=== PATIENT | male | born 1955 | race Caucasian/White ===

== ENCOUNTER 2016-12-13 09:54 | Emergency (ER) | payer MEDICAID ==
[~2016-12-13] VITALS: Wt 89.0 kg
--- NOTE | 2016-12-13 10:52 | ERD ---
ER Documentation Chief Complaint Date/Time DATE: 12/13/16 TIME: 10:30 Chief Complaint painful rash to right side of body with no fevers. HPI 61-year-old male with history of diabetes mellitus type 2 ambulatory to the ED complaining of a 2 day history of painful, red rash to his right side of his chest. Otherwise denies chest pain or palpitation. No shortness of breath or cough. No abdominal pain, nausea vomiting. No headache, neck or back pain. No fevers or chills. ROS All systems reviewed and are negative except as per history of present illness. Medications Home Meds Active Scripts Hydrocodone/Acetaminophen ([place] 5-325 Tablet) 1 Each Tablet, 1-2 TAB PO Q6H Y for PAIN, #12 TAB Prov:MARTHA CARO MD 12/13/16 Tramadol HCl (Tramadol HCl) 50 Mg Tablet, 50 MG PO Q6, #20 TAB Prov:MARTHA CARO MD 12/13/16 Valacyclovir HCl (Valtrex) 1,000 Mg Tablet, 1000 MG PO TID for 7 Days, TAB Prov:MARTHA CRAO MD 12/13/16 Reported Medications Metformin* (Glucophage*) 1,000 Mg Tablet, 1000 MG PO BID, #60 TAB 12/13/16 Glipizide* (Glipizide*) 10 Mg Tablet, 10 MG PO BID, TAB 12/13/16 Allergies Allergies: Coded Allergies: No Known Allergy (Unverified , 12/13/16) PMhx/Soc Reviewed in chart. As per HPI. History of Surgery: Yes (appendectomy) Anesthesia Reaction: No Hx Neurological Disorder: No Hx Respiratory Disorders: No Hx Cardiac Disorders: No Hx Psychiatric Problems: No Hx Miscellaneous Medical Probl: Yes (DM) Hx Alcohol Use: No Hx Substance Use: No Hx Tobacco Use: No Smoking Status: Never smoker FmHx Not relevant to presenting complaint. Physical Exam Vitals Vital Signs Date Time Temp Pulse Resp B/P Pulse Ox O2 Delivery O2 Flow Rate FiO2 12/13/16 10:04 98.8 80 20 148/85 98 Physical Exam Const: Alert, no acute distress. Head: Atraumatic Eyes: Normal Conjunctiva ENT: Normal External Ears, Nose and Mouth. Neck: Full range of motion. Nontender Resp: Clear to auscultation bilaterally Cardio: Regular rate and rhythm, no murmurs Abd: Soft, non tender, non distended. Normal bowel sounds Skin: Vesicles on erythematous base in the right T5 dermatome. Back: No midline or flank tenderness Ext: No cyanosis, or edema Neur: Awake and alert Psych: Normal Mood and Affect Procedures/MDM DOCUMENTS REVIEWED: ED nurse, no prior records available.. [employer] DECISION MAKIN-year-old male with history of diabetes mellitus type 2 ambulatory to the ED complaining of a 2 day history of painful, red rash to his right side of his chest. Presentation consistent with herpes zoster infection of the right T5 dermatome. No evidence of ophthalmologic, respiratory or neurologic involvement. No evidence of cellulitis or secondary infection. Stable for discharge with antivirals, appropriate analgesics and outpatient follow-up as counseled. Counseled patient regarding diagnostic workup, diagnosis and need for followup. Understands to return to ED if symptoms recur, worsen or any other concerns. Departure Diagnosis: Primary Impression: Herpes zoster Herpes zoster complications: without complications Qualified Code: B02.9 - Herpes zoster without complication Additional Impression: Diabetes mellitus type 2 in nonobese Condition: Stable Patient Instructions: Shingles (Herpes Zoster) MARTHA CARO MD Dec 13, 2016 10:52
[2016-12-13] MEDS ORDERED: HYDR-906 PO (10:55)
[2016-12-13] MEDS ORDERED: TRAM50TA2 PO (10:55)
[2016-12-13] MEDS ORDERED: VALA10004 PO (10:55)
[2016-12-13] MEDS ORDERED: GLIP-95 PO (11:26)
[2016-12-13] MEDS ORDERED: MTF1000T PO (11:26)
== END 2016-12-13 11:16 | disposition home or self-care (01) ==
LOC: E/R 09:54
DX: B02.9 Zoster without complications (principal); E11.9 Type 2 diabetes mellitus without complications; Z79.84 Long term (current) use of oral hypoglycemic drugs
CPT/HCPCS: 99284

== ENCOUNTER 2016-12-29 13:40 | Emergency (ER) | payer MEDICAID ==
[~2016-12-29] VITALS: Wt 88.0 kg
[~2016-12-29 13:40] MED LIST: GLIP-95 PO; HYDR-906 PO; MTF1000T PO; TRAM50TA2 PO; VALA10004 PO
[2016-12-29] MEDS ORDERED: ONDANSETRON 4 MG INJ IV STA (15:36)
[2016-12-29] MEDS ORDERED: KETOROLAC 15 MG INJ IV STA (15:36)
--- NOTE | 2016-12-29 15:40 | ERD ---
ER Documentation Chief Complaint Date/Time DATE: 12/29/16 TIME: 15:39 Chief Complaint r side abdominal pain since last night. no n/v. mild diarrhea no dysuria HPI 61-year-old male, diabetes mellitus type 2, diagnosed herpes shingles in the right T5 distribution on 12/13/16 ambulatory to ED complaining of right upper quadrant pain. The neuralgia from his shingles improved with analgesics but once he ran out of his pain medicine the pain returned and he complains of ongoing, sharp, nonradiating pain in the distribution of the shingles rash. There are no new lesions or drainage. Yesterday he developed unprovoked, sharp , nonradiating, moderate right upper quadrant pain with nausea no vomiting and several episodes of nonbloody, nonmucoid diarrhea. Denies ill contacts, recent travel as well food exposure. No dysuria, polyuria, hematuria or flank pain. No relieving or exacerbating factors. Denies chest pain or palpitations. No shortness of breath or cough. No URI symptoms. No fevers or chills. ROS All systems reviewed and are negative except as per history of present illness. Medications Home Meds Active Scripts Tramadol HCl (Tramadol HCl) 50 Mg Tablet, 50 MG PO Q8 Y for PAIN, #20 TAB Prov:MARTHA CARO MD 12/29/16 Capsaicin (Capsaicin) 42.5 Gm Cream.gm., 1 APPLIC TOP TID, #1 TUB Prov:MARTHA CARO MD 12/29/16 Reported Medications Metformin* (Glucophage*) 1,000 Mg Tablet, 1000 MG PO BID, #60 TAB 12/13/16 Glipizide* (Glipizide*) 10 Mg Tablet, 10 MG PO BID, TAB 12/13/16 Discontinued Scripts Hydrocodone/Acetaminophen ([place] 5-325 Tablet) 1 Each Tablet, 1-2 TAB PO Q6H Y for PAIN, #12 TAB Prov:MARTHA CARO MD 12/13/16 Tramadol HCl (Tramadol HCl) 50 Mg Tablet, 50 MG PO Q6, #20 TAB Prov:MARTHA CARO MD 12/13/16 Valacyclovir HCl (Valtrex) 1,000 Mg Tablet, 1000 MG PO TID for 7 Days, TAB Prov:MARTHA CARO MD 12/13/16 Allergies Allergies: Coded Allergies: No Known Allergy (Unverified , 12/29/16) PMhx/Soc Reviewed in chart. As per HPI. History of Surgery: Yes (appendectomy) Anesthesia Reaction: No Hx Neurological Disorder: No Hx Respiratory Disorders: No Hx Cardiac Disorders: No Hx Psychiatric Problems: No Hx Miscellaneous Medical Probl: Yes (DM) Hx Alcohol Use: No Hx Substance Use: No Hx Tobacco Use: No FmHx Reviewed in chart. As per HPI. Physical Exam Vitals Vital Signs Date Time Temp Pulse Resp B/P Pulse Ox O2 Delivery O2 Flow Rate FiO2 12/29/16 17:46 78 16 161/98 98 Room Air 12/29/16 13:49 98.5 76 20 122/68 98 Physical Exam Const: Alert, mild distress due to pain Head: Atraumatic Eyes: Normal Conjunctiva ENT: Normal External Ears, Nose and Mouth. Neck: Full range of motion. Nontender Resp: Clear to auscultation bilaterally Cardio: Regular rate and rhythm, no murmurs Abd: Soft, mild right upper quadrant tenderness but no rebound or guarding. No masses or abnormal pulsations. non distended. Normal bowel sounds Skin: No petechiae or rashes. Dried vesicles on erythematous base right T5 distribution more prominent anteriorly with minimal posterior lesions. Back: No midline or flank tenderness Ext: No cyanosis, or edema Neur: Awake and alert Psych: Normal Mood and Affect Result Diagram: 12/29/16 1630 12/29/16 1630 Results 24 hrs Laboratory Tests Test 12/29/16 16:20 12/29/16 16:30 Urine Bilirubin NEGATIVE Urine Clarity CLEAR Urine Color LT. YELLOW Urine Glucose 0.25%% Urine Hemoglobin NEGATIVE Urine Ketones NEGATIVE Urine Leukocyte Esterase NEGATIVE Urine Nitrite NEGATIVE Urine Specific [place] 1.015 Urine Total Protein NEGATIVE Urine Urobilinogen 0.2 E.U./dL Urine pH 6.0 Alanine Aminotransferase (ALT/SGPT) 17IU/L Albumin 4.1g/dl Albumin/Globulin Ratio 1.07 Alkaline Phosphatase 116IU/L Anion Gap 18 Aspartate Amino Transf (AST/SGOT) 18IU/L Basophils # 0.010^3/ul Basophils % 0.4% Blood Urea Nitrogen 15mg/dl Calcium Level 9.5mg/dl Carbon Dioxide Level 28mmol/L Chloride Level 99mmol/L Creatinine 0.74mg/dl Direct Bilirubin 0.00mg/dl Eosinophils # 0.210^3/ul Eosinophils % 2.6% Globulin 3.80g/dl Glucose Level 246mg/dl Hematocrit 43.2% Hemoglobin 15.6g/dl Indirect Bilirubin 0.4mg/dl Lipase 82U/L Lymphocytes # 2.710^3/ul Lymphocytes % 30.2% Mean Corpuscular Hemoglobin 29.8pg Mean Corpuscular Hemoglobin Concent 36.1g/dl Mean Corpuscular Volume 82.6fl Mean Platelet Volume 9.5fl Monocytes # 0.810^3/ul Monocytes % 8.7% Neutrophils # 5.210^3/ul Neutrophils % 57.9% Nucleated Red Blood Cells # 0.010^3/ul Nucleated Red Blood Cells % 0.0/100WBC Platelet Count 66693^3/UL Potassium Level 4.5mmol/L Red Blood Count 5.2310^6/ul Red Cell Distribution Width 12.3% Sodium Level 140mmol/L Total Bilirubin 0.4mg/dl Total Protein 7.9g/dl White Blood Count 9.010^3/ul Current Medications Medications (Trade) Dose Ordered Sig/Ellen Route PRN Reason Start Time Stop Time Status Last Admin Dose Admin Ondansetron HCl (Zofran Inj) 4 mg ONCE STAT IV 12/29/16 15:36 12/29/16 15:40 DC 12/29/16 16:36 Ketorolac Tromethamine (Toradol) 15 mg ONCE STAT IV 12/29/16 15:36 12/29/16 15:40 DC 12/29/16 15:36 IMAGING: PROCEDURE: Abdominal Ultrasound (right upper quadrant). CLINICAL INDICATION: Abdominal pain TECHNIQUE: Multiple real-time longitudinal and transverse images of the right upper quadrant of the abdomen were acquired utilizing a curved array transducer. Images were reviewed on a high-resolution PACS workstation. COMPARISON: None FINDINGS: The liver is normal in size and echogenicity. No focal masses are identified. There is no evidence of intra or extrahepatic ductal dilatation. The common bile duct measures 2.6 mm in diameter. No gallstones or gallbladder wall thickening is seen. The visualized portions of the pancreas are unremarkable with obscuration of the tail of the pancreas. No free fluid is identified. There is no evidence of right hydronephrosis or renal calcification. The right kidney measures 12.2 cm in length. The visualized portions of the aorta and inferior vena cava are within normal limits. IMPRESSION: 1. Unremarkable right upper quadrant ultrasound. RPTAT: KK .Claudio Fowler MD, MD Date Time Electronically viewed and signed by .Claudio Fowler MD, on 2016 16:19 .B/ Procedures/MDM DOCUMENTS REVIEWED: ED nurse, prior ED. ED COURSE: Toradol 15 mg IV. REEXAMINATION/REEVALUATION: Time: 17:35. Doing well. Pain decreased significantly. [employer] DECISION MAKIN-year-old male, diabetes mellitus type 2, diagnosed with herpes shingles in the right T5 distribution on 12/13/16 ambulatory to ED complaining of right upper quadrant pain. Liver function tests are normal. No pancreatitis. No anemia or evidence of GI bleeding. Ultrasound is negative for cholelithiasis or cholecystitis. No evidence of cholangitis. Occult malignancy is unlikely. Abdominal exam is benign without rebound, guarding or signs of peritonitis. Pain likely referred from shingles neuropathy although other etiologies including gastritis/GERD, peptic ulcer disease, bowel obstruction, ureterolithiasis, pyelonephritis and abdominal aortic aneurysm are considered. Diabetic hyperglycemia without evidence of DKA. Stable for discharge with precautionary instructions, appropriate analgesics and outpatient follow-up as counseled. Counseled patient regarding diagnostic workup, diagnosis and need for followup. Understands to return to ED if symptoms recur, worsen or any other concerns. Departure Diagnosis: Primary Impression: Acute abdominal pain in right upper quadrant Additional Impressions: Shingles rash Herpes zoster complications: without complications Qualified Code: B02.9 - Herpes zoster without complication Hyperglycemia due to type 2 diabetes mellitus Diabetes mellitus manager terminal insulin use: without shelter use Qualified Code : E11.65 - Type 2 diabetes mellitus with hyperglycemia, without long-term current use of insulin Condition: Stable MARTHA CARO MD Dec 29, 2016 15:40
--- NOTE | 2016-12-29 16:20 | RADRPT ---
PROCEDURE: Abdominal Ultrasound (right upper quadrant). CLINICAL INDICATION: Abdominal pain TECHNIQUE: Multiple real-time longitudinal and transverse images of the right upper quadrant of th e abdomen were acquired utilizing a curved array transducer. Images were reviewed on a high-resoluti on PACS workstation. COMPARISON: None FINDINGS: The liver is normal in size and echogenicity. No focal masses are identified. There is no evidenc e of intra or extrahepatic ductal dilatation. The common bile duct measures 2.6 mm in diameter. No gallstones or gallbladder wall thickening is seen. The visualized portions of the pancreas are unremarkable with obscuration of the tail of the pancrea s. No free fluid is identified. There is no evidence of right hydronephrosis or renal calcification. The right kidney measures 12.2 cm in length. The visualized portions of the aorta and inferior vena cava are within normal limits. IMPRESSION: 1. Unremarkable right upper quadrant ultrasound. RPTAT: KK .Claudio Fowler MD, MD Date Time Electronically viewed and signed by .Claudio Fowler MD, on 12/29/2016 16:19 .B/
[2016-12-29 16:54] LABS: ADD SCAN DIFF NO
[2016-12-29 16:57] LABS: ADD UMIC NO; URINE BILIRUBIN (Dip) NEGATIVE (NEGATIVE); URINE BLOOD (Dip) NEGATIVE (NEGATIVE); URINE COLOR LT. YELLOW (YELLOW); URINE KETONES (Dip) NEGATIVE (NEGATIVE); URINE LEUKOCYTE ESTERASE (Dip) NEGATIVE (NEGATIVE); URINE NITRITE (Dip) NEGATIVE (NEGATIVE); URINE TOTAL PROTEIN (Dip) NEGATIVE (NEGATIVE); URINE UROBILINOGEN (Dip) 0.2 E.U./dL (0.1-1.0)
[2016-12-29 16:59] LABS: BASOPHILS % 0.4 % (0.0-2.0); EOSINOPHILS # 0.2 10^3/ul (0.0-0.5); EOSINOPHILS % 2.6 % (0.0-7.0); HEMATOCRIT 43.2 % (42.0-52.0); HEMOGLOBIN 15.6 g/dl (14.0-18.0); LYMPHOCYTES # 2.7 10^3/ul (0.8-2.9); LYMPHOCYTES % 30.2 % (15.0-51.0); MEAN CORPUSCULAR HEMOGLOBIN 29.8 pg (29.0-33.0); MEAN CORPUSCULAR HGB CONC 36.1 g/dl (32.0-37.0); MEAN CORPUSCULAR VOLUME 82.6 fl (82.0-101.0); MEAN PLATELET VOLUME 9.5 fl (7.4-10.4); MONOCYTE # 0.8 10^3/ul (0.3-0.9); MONOCYTES % 8.7 % (0.0-11.0); NEUTROPHIL # 5.2 10^3/ul (1.6-7.5); NEUTROPHILS % 57.9 % (39.0-77.0); PLATELET COUNT 322 10^3/UL (140-415); RED BLOOD COUNT 5.23 10^6/ul (4.70-6.10); RED CELL DISTRIBUTION WIDTH 12.3 % (11.5-14.5)
[2016-12-29 17:10] LABS: ALBUMIN 4.1 g/dl (3.3-4.9); POTASSIUM 4.5 mmol/L (3.5-5.1)
[2016-12-29 17:12] LABS: ALBUMIN/GLOBULIN RATIO 1.07; BILIRUBIN,INDIRECT 0.4 mg/dl (0-1.1); BILIRUBIN,TOTAL 0.4 mg/dl (0.2-1.3); CREATININE 0.74 mg/dl (0.61-1.24); TOTAL PROTEIN 7.9 g/dl (6.1-8.1)
[2016-12-29 17:13] LABS: CALCIUM 9.5 mg/dl (8.4-10.2)
[2016-12-29] MEDS ORDERED: TRAM50TA2 PO (18:26)
[2016-12-29] MEDS ORDERED: CAPS42.510 TOP (18:26)
[2016-12-29 18:40] VITALS: BP 148/82; PULSE 76; RESP 16; TEMP 98.3
== END 2016-12-29 18:41 | disposition home or self-care (01) ==
LOC: E/R 13:40
DX: R10.11 Right upper quadrant pain (principal); B02.9 Zoster without complications; E11.65 Type 2 diabetes mellitus with hyperglycemia; R11.0 Nausea; Z79.84 Long term (current) use of oral hypoglycemic drugs
CPT/HCPCS: 36415; 76705; 80053; 81003; 83690; 85025; 96374; 96375; J1885; J2405; Z7502